=== PATIENT | female | born 2000 | race Caucasian/White ===

== ENCOUNTER 2020-05-18 14:29 | Inpatient (IN) ==
[2020-05-18 16:21] LABS: ABS Lymphocytes 1.5 10^3/ul (1.0-4.8); ABS Monocytes 0.8 10^3/ul (0-0.8); ABS Neutrophils 6.9 10^3/ul (1.5-7.7); Eosinophil % 0.1 %; Hematocrit 44 % (35-47); Hemoglobin 15.3 g/dL (12.0-16.0); Lymphocyte % 16.6 %; Mean Corpuscular HGB Conc 35 g/dL (31-36); Mean Corpuscular Hemoglobin 30 pg (27-31); Mean Corpuscular Volume 87 fL (80-97); Mean Platelet Volume 8.2 fL (7.4-10.4); Platelet Count 271 10^3/uL (150-450); Red Blood Count 5.08 10^6 /uL (3.70-4.87); Red Cell Distribution Width 13 % (10-15); White Blood Count 9.2 10^3/uL (3.5-10.8)
[2020-05-18 16:37] LABS: ALT 9 U/L (7-52); AST 18 U/L (13-39); Albumin 4.5 g/dL (3.2-5.2); Albumin/Globulin Ratio 1.7 (1-3); Alkaline Phosphatase 66 U/L (34-104); Anion Gap 6 mmol/L (2-11); BUN/Creatinine Ratio 21.3 (8-20); Blood Urea Nitrogen 13 mg/dL (6-24); CO2 Carbon Dioxide 28 mmol/L (22-32); Calcium 9.9 mg/dL (8.6-10.3); Chloride 108 mmol/L (101-111); EGFR African American 151.3 (>60); Globulin 2.6 g/dL (2-4); Glucose 120 mg/dL (70-100); Sodium 142 mmol/L (135-145); Total Protein 7.1 g/dL (6.4-8.9)
[2020-05-18 16:44] LABS: HCG Pregnancy < 0.60 mIU/mL
[2020-05-18 16:48] LABS: Acetaminophen < 15 mcg/mL; Alcohol, S < 10 mg/dL (<10); Salicylate < 2.50 mg/dL (<30)
[2020-05-18 16:59] LABS: Urine Benzodiazepine Screen None Detected (None Detect); Urine Cannabinoids Screen Presumptive Positive (None Detect); Urine Opiates Screen None Detected (None Detect)
[2020-05-18 17:02] LABS: TSH Ultra Thyroid Stim Horm 0.76 mcIU/mL (0.34-5.60)
[2020-05-18 17:22] LABS: Urine Appearance Cloudy; Urine Bacteria Absent (Absent); Urine Bilirubin Negative (Negative); Urine Blood 1+ (Negative); Urine Color Amber; Urine Glucose Negative (Negative); Urine Ketones 1+ (Negative); Urine Nitrite Negative (Negative); Urine Protein 1+(30 mg/dL) (Negative); Urine Red Blood Cell 2+(6-10/hpf) (Absent); Urine Specific Gravity 1.025 (1.010-1.030); Urine Squamous Epithelial Cell Present (Absent); Urine Urobilinogen Negative (Negative); Urine White Blood Cell Trace(0-5/hpf) (Absent)
[2020-05-18] MEDS ORDERED: Potassium Chlor 20 meq TAB.ER PO ONE (17:48)
[2020-05-18] MEDS ORDERED: Amoxicillin/Clavul 500/125 TAB (Augmentin 500 mg tab) PO ONE (19:05)
[2020-05-18] MEDS ORDERED: Al Hydrox/Mg Hydrox/Simet LIQ 30 ML UDC PO PRN (22:54)
[2020-05-19] MEDS: Nicotine PATCH 7 MG/24 HR PATCH TRANSDERM SCH ×2 (00:06→09:18)
[2020-05-19] MEDS: Vitamin THERAPEUTIC TAB PO SCH (09:18)
[2020-05-20] MEDS: Vitamin THERAPEUTIC TAB PO SCH (08:31)
[2020-05-20] MEDS: Nicotine PATCH 7 MG/24 HR PATCH TRANSDERM SCH (08:31)
[2020-05-20 11:16] LABS: HIV 4th Generation Nonreactive (Nonreactive)
[2020-05-21] MEDS: Nicotine GUM 2MG FRUIT FLAVOR PO PRN ×2 (07:00→15:57)
[2020-05-21] MEDS: Nicotine PATCH 7 MG/24 HR PATCH TRANSDERM SCH (09:10)
[2020-05-21] MEDS: Vitamin THERAPEUTIC TAB PO SCH (09:11)
[2020-05-21 09:38] LABS: HDL Cholesterol 42.4 mg/dL
[2020-05-21] MEDS: diPHENhydraMINE 25 mg TAB PO PRN (22:01)
[2020-05-22] MEDS: Nicotine PATCH 7 MG/24 HR PATCH TRANSDERM SCH (09:15)
[2020-05-22] MEDS: Vitamin THERAPEUTIC TAB PO SCH (09:15)
[2020-05-22] MEDS: Nicotine GUM 2MG FRUIT FLAVOR PO PRN (17:49)
[2020-05-22] MEDS: diPHENhydraMINE 25 mg TAB PO PRN (21:23)
[2020-05-23] MEDS: Nicotine PATCH 7 MG/24 HR PATCH TRANSDERM SCH (07:24)
[2020-05-23] MEDS: Vitamin THERAPEUTIC TAB PO SCH (07:25)
[2020-05-23] MEDS ORDERED: Influenza VAC *QUAD* 2020-21* 0.5 ML SYRINGE IM ONE (09:00)
[2020-05-23] MEDS: Lisdexamfetamine 10 mg CAP(NF) PO SCH (12:46)
[2020-05-23] MEDS: Nicotine GUM 2MG FRUIT FLAVOR PO PRN (13:03)
[2020-05-24] MEDS: Lisdexamfetamine 10 mg CAP(NF) PO SCH (07:32)
[2020-05-24] MEDS: Nicotine PATCH 7 MG/24 HR PATCH TRANSDERM SCH (07:32)
[2020-05-24] MEDS: Vitamin THERAPEUTIC TAB PO SCH (07:32)
[2020-05-24] MEDS: Nicotine GUM 2MG FRUIT FLAVOR PO PRN ×2 (09:41→20:04)
[2020-05-25] MEDS: Nicotine PATCH 7 MG/24 HR PATCH TRANSDERM SCH (08:28)
[2020-05-25] MEDS: Vitamin THERAPEUTIC TAB PO SCH (08:29)
[2020-05-25] MEDS: Nicotine GUM 2MG FRUIT FLAVOR PO PRN (08:31)
[2020-05-25 08:54] VITALS: BP 136/70
[2020-05-25] MEDS ORDERED: LISDEXAMFETAMINE 10 MG PO SCH (09:00)
== END 2020-05-25 13:00 | disposition home or self-care (01) | DRG 750 ==
LOC: ED 14:29 → BSU 22:18
PROVIDERS: ADMIT Psychiatry & Neurology Psychiatry; ATTEND Psychiatry & Neurology Psychiatry